=== PATIENT | female | born 1950 | race Caucasian/White ===

== ENCOUNTER 2021-01-15 06:26 | Day surgery (SDC) | payer MEDICARE ==
[~2021-01-15] VITALS: Ht 157.5 cm; Wt 48.5 kg
[~2021-01-15 06:26] MED LIST: AMITRIPTYLINE H50 MG PO; D3250 MCG PO; FISH OIL1000 MG PO; GABAPENTIN400 M2 PO; NEURONTIN600 MG PO; OXYCOD-APAP1 TA1 PO
[2021-01-15] MEDS ORDERED: LEVOTHYROXIN150 MCG PO (07:39)
[2021-01-15] MEDS ORDERED: BREO ELLIPTA 101 INH IN (07:39)
[2021-01-15] MEDS ORDERED: [UNRECOGNIZED DRUG - REMARK] PO (07:40)
[2021-01-15 09:04] VITALS: BP 103/67
== END 2021-01-15 09:30 | disposition home or self-care (01) ==
LOC: ORM 06:26
PROVIDERS: ATTEND Anesthesiology Pain Medicine
DX: M25.511 Pain in right shoulder (principal); M75.01 Adhesive capsulitis of right shoulder

== ENCOUNTER 2021-03-16 21:08 | Inpatient (IN) | payer MEDICARE ==
[~2021-03-16] VITALS: Ht 157.5 cm; Wt 48.0 kg
[~2021-03-16 21:08] MED LIST changes: +BREO ELLIPTA 101 INH IN; +LEVOTHYROXIN150 MCG PO; +[UNRECOGNIZED DRUG - REMARK] PO
--- NOTE | 2021-03-16 21:08 | NUR ---
PT TO ROOM VIA EMS STRETCHER, FOR BEDSIDE TRIAGE, PTS GRANDDAUGHTER AT BEDSIDE
--- NOTE | 2021-03-16 21:50 | NUR ---
PT VERBALLY RESPONSIVE FOLLOWS SIMPLE COMMANDS A FIB ALT CONTROLLED NONCONTROLLED.DENIES CP NO COUGH
[2021-03-16 21:55] LABS: HEMATOCRIT 25.7 % (37.0-47.0); HEMOGLOBIN 7.8 g/dl (12.0-16.0); IMMATURE GRANULOCYTES 0.2 % (0.0-5.0); MEAN CELL VOLUME 76.9 fL CALC (80.0-100.0); MEAN CORPUSCULAR HGB 23.4 pG CALC (26.0-32.0); MEAN CORPUSCULAR HGB CONC 30.4 g/dL CAL (32.0-36.0); NEUT# 8.69 thou/uL (2.00-7.15); RED BLOOD COUNT 3.34 mill/uL (4.20-5.60); RED CELL DISTRI WIDTH 16.8 % (11.5-15.5)
[2021-03-16] MEDS ORDERED: XARELTO20 MG PO (21:57)
[2021-03-16] MEDS ORDERED: DILTIAZEM120 M2 PO (21:57)
[2021-03-16] MEDS ORDERED: BREZTRI AEROSPH1 AER (22:00)
[2021-03-16 22:06] LABS: ALBUMIN 3.6 g/dL (3.2-5.0); ALKALINE PHOSPHATASE 107 u/l (38-126); ANION GAP 15 (6-22 (CALC)); BILIRUBIN, TOTAL 0.6 mg/dL (0.0-1.4); BUN 25 mg/dL (8-23); BUN/CREATININE RATIO 29 (12-20 (CALC)); CARBON DIOXIDE 23 mmol/l (22-30); CHLORIDE 100 mmol/l (95-108); CREATININE 0.8 mg/dL (0.5-1.0); GFR > 60 ML/MIN (>=60 (CALC)); GFR FOR AFR.AMER. > 60 ML/MIN (>=60 (CALC)); POTASSIUM 4.1 mmol/l (3.5-5.1); SGOT/AST 25 u/l (9-36); SODIUM 134 mmol/l (137-146); TOTAL PROTEIN 7.4 g/dL (6.3-8.2)
[2021-03-16 22:17] LABS: MYOGLOBIN 47 ng/mL (0 - 62)
--- NOTE | 2021-03-16 22:20 | NUR ---
W/P/D SKIN NO COUGH NO CONGESTION DENIES PAIN.
[2021-03-16 23:11] LABS: INTERNATIONAL NORMALIZED RATIO 1.2 RATIO (0.7-1.3); PROTHROMBIN TIME 12.5 SECONDS (9.0-12.5)
--- NOTE | 2021-03-16 23:41 | NUR ---
A FIB RATE VARIABLE 95-120 BPM NO CONGESTION NO COUGH NORMAL SPEAKING VOICE,
[2021-03-17] VITALS (14 sets, daily range): BP systolic 107–154; BP diastolic 67–88
--- NOTE | 2021-03-17 00:20 | NUR ---
PHONE REPORT TO NURSE JACOBS IN ICU PT TRANSPORTED TO ICU VIA STRETCHER ON BIPAP RN AND FLOOR CLERK IN STABLE CONDITION
--- NOTE | 2021-03-17 00:30 | NUR ---
RECEIVED PATIENT FROM ED VIA STRETCHER. AWAKE, ALERT AND ORIENTED. VSS. PATIENT ON BIPAP, SATURATION 91% TOLERATING WELL. ASSESSMENT COMPLETE. PATIENT ORIENTED TO ROOM AND INSTRUCTED ON USE OF BED CONTROLS AND CALL LIGHT. DENIES PAIN AT THIS TIME. INSTRUCTED TO CALL FOR ASSISTANCE.
--- NOTE | 2021-03-17 05:06 | NUR ---
RESTING QUIETLY. SATURATION 99% ON BIPAP.
--- NOTE | 2021-03-17 06:12 | NUR ---
BIPAP STANDBY. PLACED ON 5L NC
--- NOTE | 2021-03-17 07:00 | NUR ---
ASSUMED CARE OF PT FROM LAURENT JACKMAN. PT RESTING IN BED WITH EYES CLOSED, NO S/S OF DISTRESS NOTED.
--- NOTE | 2021-03-17 07:36 | NUR ---
UPDATED DAUGHTER KARSON BY PHONE
--- NOTE | 2021-03-17 08:20 | NUR ---
MD AT BEDSIDE ROUNDING
--- NOTE | 2021-03-17 09:04 | NUR ---
UPDATED DAUGHTER KARSON BY PHONE AFTER MD ROUNDS
--- NOTE | 2021-03-17 11:00 | NUR ---
PT ON 10L HFNC WITH SATS OF 91%. VSS.
--- NOTE | 2021-03-17 15:20 | NUR ---
PT AT BEDSIDE WORKING WITH PT
--- NOTE | 2021-03-17 19:40 | NUR ---
awakens easily. denies sob BUT IS with exertion. o2 cont. school bus monitor shows a fib hr 126. #20 lac saline lock. po fluids taken poor. has not voided this shift. has multi scabs about body. fall precautions cont. pt begins to instruct this comic writer how & when to give her meds. instructed pt this comic writer would give meds as ordered.
--- NOTE | 2021-03-17 20:00 | NUR ---
up to bsc. sob with exert. sao2 dropped to 74% with activity. once pt returned to bed. sao2 increased to 94%.
[2021-03-17 21:10] LABS: URINE BILIRUBIN - DIPSTICK NEGATIVE (NEGATIVE); URINE BLOOD DIPSTICK NEGATIVE (NEGATIVE); URINE COLOR YELLOW; URINE GLUCOSE - DIPSTICK 250 mg/dL (NEGATIVE); URINE KETONE NEGATIVE (NEGATIVE); URINE LEUK ESTERASE NEGATIVE (NEGATIVE); URINE PROTEIN - DIPSTICK TRACE mg/dL (NEG-TRACE); URINE SPECIFIC GRAVITY >=1.030; URINE UROBILINOGEN - DIPSTICK 0.2 E.U./dL (0.2)
[2021-03-17 21:11] LABS: URINE NITRITE - DIPSTICK NEGATIVE (Negative)
--- NOTE | 2021-03-17 22:00 | NUR ---
eyes closed. no distress. o2 cont.
[2021-03-18] VITALS (21 sets, daily range): BP systolic 84–150; BP diastolic 51–94
--- NOTE | 2021-03-18 00:01 | NUR ---
awakens easily. meds given. denies distress.
--- NOTE | 2021-03-18 02:00 | NUR ---
resting quietly. no distress. o2 cont.
--- NOTE | 2021-03-18 05:00 | NUR ---
lab here. blood drawn.
--- NOTE | 2021-03-18 05:30 | NUR ---
xray here. pcxr obtained.
[2021-03-18 06:25] LABS: HEMATOCRIT 25.3 % (37.0-47.0); HEMOGLOBIN 7.6 g/dl (12.0-16.0); IMMATURE GRANULOCYTES 0.3 % (0.0-5.0); MEAN CELL VOLUME 75.7 fL CALC (80.0-100.0); MEAN CORPUSCULAR HGB 22.8 pG CALC (26.0-32.0); NEUT# 6.78 thou/uL (2.00-7.15); RED BLOOD COUNT 3.34 mill/uL (4.20-5.60); RED CELL DISTRI WIDTH 16.8 % (11.5-15.5)
[2021-03-18 06:44] LABS: ANION GAP 12 (6-22 (CALC)); BUN 19 mg/dL (8-23); BUN/CREATININE RATIO 40 (12-20 (CALC)); CARBON DIOXIDE 25 mmol/l (22-30); CHLORIDE 104 mmol/l (95-108); CREATININE 0.5 mg/dL (0.5-1.0); GFR > 60 ML/MIN (>=60 (CALC)); GFR FOR AFR.AMER. > 60 ML/MIN (>=60 (CALC)); MAGNESIUM 1.8 mg/dL (1.6-2.3); POTASSIUM 4.1 mmol/l (3.5-5.1); SODIUM 137 mmol/l (137-146)
--- NOTE | 2021-03-18 07:00 | NUR ---
ASSUMED CARE OF PT FROM GILLIAN MITCHELL. PT RESTING IN BED ON 8L HI RAMESH NC. NO S/S OF DISTRESS NOTED
--- NOTE | 2021-03-18 08:05 | NUR ---
ROUNDOING AT BEDSIDE
--- NOTE | 2021-03-18 09:05 | NUR ---
PT AT BEDSIDE WITH PT
--- NOTE | 2021-03-18 12:15 | NUR ---
S- pt talking thoughout treatment and needed to be reminded to slow down and do proper breathing techniques. 0- Pt had just gotten out of bed with nursing. She performed sitting hip flexion, LAQ and ankle DF/PF 1 x 10 reps with frequent rest to maintain 02 sat at 90 or above. Pt HR in 130's, 02 sats 84 to 92% Spirometer performed with max at 750. Time spent with pt 25 min. 0- respiratory status limiting pt ability. [facility] 10 ECF. P- will follow per POC.
--- NOTE | 2021-03-18 14:09 | NUR ---
S- pt reported feeling better, has been up since this am. 0- nursing contacted prior to treatment. Pt performed 2 x 10 reps of LAQ.hip flexion, ankle DF with frequent rest to keep 02 sats in 90'. Pt stood x 1 with min assist for less than 30 sec and returned to sittin 02 sats to 84 with quick return to 90's, RR increased and pt required verbal cueing to slow breathing. Nursing aware. Time spent with pt 25 min. A- [facility] unchanged P- will follow per POC.
--- NOTE | 2021-03-18 14:20 | NUR ---
POST BREATHING TREATMENT AND FAMILY VISIT PT WAS NOTED TO BE IN TRIPOD POSTION WITH SATS IN THE LOW 60S, HI RAMESH NC IN PLACE AT 10L. RT NOTIFIED WHILE REMAINING WITH PT. RT PLACE NRB ON PT AND PT O2 SATS STABLIZED. PT A AND O X3, DENIES ANY OTHER NEEDS OR CONCERNS AT THIS TIME
--- NOTE | 2021-03-18 14:34 | NUR ---
PT WAS IN RESPIRATORY DISTRESS WITH SATS IN THE 60'S. PT PLACED ON NRB MASK TO RECOVER WITH SATS OF 95%. PT STATES SHE IS FEELING MUCH BETTER AND DOES NOT TO APPEAR TO BE IN RESPIRATORY DISTRESS ANYMORE. RN/RT TO CONTINUE MONITORING.
--- NOTE | 2021-03-18 17:15 | NUR ---
DAUGHTER VISITING AT BEDSIDE
--- NOTE | 2021-03-18 20:00 | NUR ---
awake. watching tv. sob with ANY activity. o2 cont per hfnc & nrb. training personnel supervisor shows a fib hr 121. #20 rac saline lock. po fluids taken well. voids per bsc. fall precautions cont.
--- NOTE | 2021-03-18 22:00 | NUR ---
eyes closed. no distress. o2 cont.
[2021-03-19] VITALS (22 sets, daily range): BP systolic 87–166; BP diastolic 54–101
--- NOTE | 2021-03-19 00:10 | NUR ---
awakens easily. medicated as ordered. no c/o.
--- NOTE | 2021-03-19 02:00 | NUR ---
resting quietly. resps even & unlabored. no apparent distress.
--- NOTE | 2021-03-19 05:53 | NUR ---
eyes closed. financial coach shows a fib 88.
--- NOTE | 2021-03-19 06:10 | NUR ---
lab here. blood drawn.
[2021-03-19 06:37] LABS: HEMATOCRIT 26.5 % (37.0-47.0); HEMOGLOBIN 7.6 g/dl (12.0-16.0); IMMATURE GRANULOCYTES 0.2 % (0.0-5.0); MEAN CELL VOLUME 77.9 fL CALC (80.0-100.0); MEAN CORPUSCULAR HGB 22.4 pG CALC (26.0-32.0); MEAN CORPUSCULAR HGB CONC 28.7 g/dL CAL (32.0-36.0); NEUT# 8.5 thou/uL (2.00-7.15); RED BLOOD COUNT 3.4 mill/uL (4.20-5.60)
--- NOTE | 2021-03-19 07:00 | NUR ---
ASSUMED CARE OF PT FROM GILLIAN MITCHELL. PT RESTING IN BED, DENIES NEEDS
[2021-03-19 07:03] LABS: ANION GAP 10 (6-22 (CALC)); BUN 32 mg/dL (8-23); BUN/CREATININE RATIO 52 (12-20 (CALC)); CARBON DIOXIDE 26 mmol/l (22-30); CHLORIDE 105 mmol/l (95-108); CREATININE 0.6 mg/dL (0.5-1.0); GFR > 60 ML/MIN (>=60 (CALC)); GFR FOR AFR.AMER. > 60 ML/MIN (>=60 (CALC)); POTASSIUM 4.2 mmol/l (3.5-5.1); SODIUM 137 mmol/l (137-146)
--- NOTE | 2021-03-19 08:00 | NUR ---
ROUNDING AT BEDSIDE
--- NOTE | 2021-03-19 09:14 | NUR ---
Contacted nursing this am, pt awaiting blood transfusion, will hold til afterwards.
--- NOTE | 2021-03-19 12:32 | NUR ---
NEB TX FOLLOWED BY CPT VIA PERCUSSOR. PT TOLERATED WELL.
--- NOTE | 2021-03-19 14:43 | NUR ---
PT VISITOR AT BEDSIDE
--- NOTE | 2021-03-19 16:27 | NUR ---
PT AT BEDSIDE WORKING WITH PT
--- NOTE | 2021-03-19 16:50 | NUR ---
S- pt reported her daughter and grand daugther has been coming to visit her. 0- Contacted nursing prior to treatment. Pt OOB in chair. Gentle heelcord stretching/hamstring stretching done with pt stating it felt good. She performed 10-20 reps of clamshell, LAQ and ankle DF/PF. Pt 02 sats in low 90's desat to 84 and returning to 90's with rest. Pt required verbal cues to pace/slow down movements. Continues be very talkative. Time spent 25 min A- Pt activity tolerance and mobility limited due to respirator status. P- will follow and treat as tolerated.
--- NOTE | 2021-03-19 17:30 | NUR ---
VISITOR AT BEDSIDE
--- NOTE | 2021-03-19 18:40 | NUR ---
LUCY RECEIVED FROM LAURENT PAZ
--- NOTE | 2021-03-19 21:00 | NUR ---
ASSESSMENT COMPLETE. PATIENT ASSISTED FROM CHAIR TO BED, SATURATION DROPS TO LOW 80'S. C/O RIGHT HIP PAIN AND REQUEST OXYCODONE. NO OTHER CONCERNS EXPRESS AT THIS TIME. CALL LIGHT WITHIN REACH.
[2021-03-20] VITALS (17 sets, daily range): BP systolic 81–158; BP diastolic 51–101
--- NOTE | 2021-03-20 00:17 | NUR ---
RESTING QUIETLY EYES CLOSED. SATURATION 98% ON VAPOTHERM.
[2021-03-20 05:48] LABS: HEMOGLOBIN 9.4 g/dl (12.0-16.0); IMMATURE GRANULOCYTES 0.1 % (0.0-5.0); MEAN CELL VOLUME 78.3 fL CALC (80.0-100.0); MEAN CORPUSCULAR HGB 23.7 pG CALC (26.0-32.0); MEAN CORPUSCULAR HGB CONC 30.3 g/dL CAL (32.0-36.0); NEUT# 8.87 thou/uL (2.00-7.15); RED BLOOD COUNT 3.96 mill/uL (4.20-5.60)
[2021-03-20 06:03] LABS: ANION GAP 11 (6-22 (CALC)); BUN 32 mg/dL (8-23); BUN/CREATININE RATIO 52 (12-20 (CALC)); CARBON DIOXIDE 26 mmol/l (22-30); CHLORIDE 103 mmol/l (95-108); CREATININE 0.6 mg/dL (0.5-1.0); GFR > 60 ML/MIN (>=60 (CALC)); GFR FOR AFR.AMER. > 60 ML/MIN (>=60 (CALC)); MAGNESIUM 1.9 mg/dL (1.6-2.3); POTASSIUM 4.6 mmol/l (3.5-5.1); SODIUM 136 mmol/l (137-146)
--- NOTE | 2021-03-20 06:41 | NUR ---
PATIENT RESTING IN BED WATCHING TV. SATURATION 95% ON VAPOTHERM TOLERATING WELL. NO DISTRESS NOTED AT THIS TIME. CALL LIGHT WITHIN REACH.
--- NOTE | 2021-03-20 08:10 | NUR ---
ROUNDING AT BEDSIDE
--- NOTE | 2021-03-20 09:05 | NUR ---
PT AT BEDSIDE WORKING WITH PATIENT
--- NOTE | 2021-03-20 10:38 | NUR ---
S- pt stated she needed to use commode when entering room, asking for laxative due to no bowel movements. Nursing aware, pt not eating much. 0- pt resting in bed. She moved to sitting with min assist using bed rail, rested on edge of bed and then transferring with min/mod assist of 1 to commode and then to chair. Calf stretch and hamstring stretch by therapist x 3 reps done. 02 sat low 90's and desat to 84 with transitional movements requiring time to recover after each movement. Pt continued to required verbal cues to stop talking and slow breathing, nursing aware. Time spent with pt 30 min. 0- mobility continues to be limited by weakness and respiratory status [facility] 10 ECF. P- Will continue to follow per POC
--- NOTE | 2021-03-20 10:45 | NUR ---
VISITOR AT BEDSIDE
--- NOTE | 2021-03-20 13:30 | NUR ---
Pt OOB in chair, resp therapist just left. Pt 02 sats mid 80. Treatment held at time time nursing aware.
--- NOTE | 2021-03-20 17:05 | NUR ---
VISITOR AT BEDSIDE
--- NOTE | 2021-03-20 19:00 | NUR ---
REPORT RECEIVED FROM Rodrick NICHOLAS RN, CARE OF PT ASSUMED AT THIS TIME.
--- NOTE | 2021-03-20 19:50 | NUR ---
PT ASSISTED TO BSC AND BACK TO BED BY Tika CASTANEDA CNA. 200ML CLEAR YELLOW OUTPUT IS REPORTED.
--- NOTE | 2021-03-20 20:41 | NUR ---
PT TOLERATES HS MEDICATION WHOLE WITH WATER WITHOUT DIFFICULTY. PRN OXYCODONE ADMINISTERED FOR RLE NUEROPATHY PER PT'S REQUEST. SEE E-JUN. Maira LOEPZ DIRECTOR OF PARKS AND RECREATION ADVISED VAPOTHERM HUMIDITY DUE TO BE REPLACED. PT DENIES FURTHER NEEDS AT THIS TIME. CALL DANIEL WITHIN REACH, AGREES TO CALL PRN.
--- NOTE | 2021-03-20 22:00 | NUR ---
PT LAYING IN BED SUPINE. EYES CLOSED. RESPIRATIONS REGULAR AND UNLABORED. APPEARS TO BE SLEEPING COMFORTABLY. SPO2 100%. CALL DANIEL REMAINS WITHIN REACH.
[2021-03-21] VITALS (22 sets, daily range): BP systolic 98–161; BP diastolic 65–97
--- NOTE | 2021-03-21 00:01 | NUR ---
Maira LOPEZ STAFF ATTORNEY IN ROOM ADMINISTERING [facility] [place]. SEE E-MAR. REPLACES VAPOTHER HUMIDITY AT THIS TIME.
--- NOTE | 2021-03-21 02:00 | NUR ---
PT LAYING IN BED SUPINE. EYES CLOSED. RESPIRATIONS REGULAR AND UNLABORED. APPEARS TO BE SLEEPING COMFORTABLY. SPO2 100%. CALL DANIEL REMAINS WITHIN REACH.
--- NOTE | 2021-03-21 04:00 | NUR ---
PT LAYING IN BED SUPINE. EYES CLOSED. RESPIRATIONS REGULAR AND UNLABORED. APPEARS TO BE SLEEPING COMFORTABLY. SPO2 100%. CALL DANIEL REMAINS WITHIN REACH.
--- NOTE | 2021-03-21 05:17 | NUR ---
Chuy HAMILTON PERL DEVELOPER IN ROOM COLLECTING AM LABS.
[2021-03-21 05:34] LABS: HEMATOCRIT 30.9 % (37.0-47.0); HEMOGLOBIN 9.1 g/dl (12.0-16.0); IMMATURE GRANULOCYTES 0.1 % (0.0-5.0); MEAN CELL VOLUME 79.8 fL CALC (80.0-100.0); MEAN CORPUSCULAR HGB 23.5 pG CALC (26.0-32.0); MEAN CORPUSCULAR HGB CONC 29.4 g/dL CAL (32.0-36.0); NEUT# 6.08 thou/uL (2.00-7.15); RED BLOOD COUNT 3.87 mill/uL (4.20-5.60); RED CELL DISTRI WIDTH 17.3 % (11.5-15.5)
[2021-03-21 06:06] LABS: ANION GAP 8 (6-22 (CALC)); BUN 30 mg/dL (8-23); BUN/CREATININE RATIO 57 (12-20 (CALC)); CARBON DIOXIDE 30 mmol/l (22-30); CHLORIDE 100 mmol/l (95-108); CREATININE 0.5 mg/dL (0.5-1.0); GFR > 60 ML/MIN (>=60 (CALC)); GFR FOR AFR.AMER. > 60 ML/MIN (>=60 (CALC)); MAGNESIUM 1.8 mg/dL (1.6-2.3); POTASSIUM 3.9 mmol/l (3.5-5.1); SODIUM 134 mmol/l (137-146)
--- NOTE | 2021-03-21 07:20 | NUR ---
pt resting in bed with eyes closed; no apparent distress noted; pt easily aroused; offers no complaints; assessment completed at this time; pt alert and oriented; denies pain; no n/v noted; resp even and unlabored; lungs clear, rhonchi left post base; skin color wnl; RT Varun at bedside; pt converted from 40L vapo with 100% FiO2 to 15L HFNC; o2 sat 93%, pt tolerated well; hr irreg; strong pulses; no edema noted; afib on monitor; abd soft with bs present; no bm noted per feature writer; no urine to inspect at this time; #20 to lw saline locked; no redness or edema noted at site; scabbed abrasions noted to ble; paln of care/am meds explained; call light within reach; will continue to monitor
--- NOTE | 2021-03-21 07:25 | NUR ---
PT WEANED TO HFNC. LESA WELL AT THIS TIME.
--- NOTE | 2021-03-21 08:05 | NUR ---
awake in bed; breakfast tray left at side of bed as per pt request; afib on monitor; o2 per nc at 15L HF; call light within reach; will continue to monitor
--- NOTE | 2021-03-21 08:30 | NUR ---
Dr Gil present at bedside to assess pt and discuss plan of care
--- NOTE | 2021-03-21 10:14 | NUR ---
awake in recliner; RT Mony present at bedside; o2 per nc at 15L HF; afib on monitor; iv intact; call light within reach; will continue to monitor
--- NOTE | 2021-03-21 10:24 | NUR ---
Attempted treatment this am. Pt on commode and transferred to BSC with nursing and therapist. Pt 02 sats in low 70 and RT and nursing working with pt. Will see pt later and treat if medically able to tolerated.
--- NOTE | 2021-03-21 12:10 | NUR ---
O2 sat low 80 to upper 70s; RT notified
--- NOTE | 2021-03-21 12:20 | NUR ---
awake in recliner; offers no complaints; no apparent distress noted; iv intact; afib on monitor; o2 per nc at 15L HF; pt deny needs; call light within reach; will continue to monitor
--- NOTE | 2021-03-21 12:39 | NUR ---
Patient O2 SAT BETWEEN 78-80% ON 12L HIGH FLOW CANNULA. Placed on a Non Rebreather Mask along with high flow cannula, O2 sats 98%.
--- NOTE | 2021-03-21 13:30 | NUR ---
PT C PT. NAD.VSS. ON NRB, C SPO2 AT 95%. SPEAKING IN FULL SENTENCES, SITTING IN RECLINER AT BEDSIDE C PT. FAMILY LAWYER TO MONITOR.
--- NOTE | 2021-03-21 14:02 | NUR ---
awake in bed; visit at bedside; no apparent distress noted; pt offers complaints; afib on monitor; NRB intact; o2 sat 91%; will continue to monitor
--- NOTE | 2021-03-21 14:16 | NUR ---
S- pt reported being tried, stated nursing wakes her for mid night meds and she did not sleep well after that. 0- pt in chair with legs elevated. NRB in place with 02 sats in low to mid 90's. A/AAROM to both LE x 10-15 reps with gentle calf stretching. BP 119/74, HR in mid 60's and nursing aware. 02 ssats low to mid 90s and desat mid 80's. She continues to require cues to breath properly. A- pt mobility continues to be limited by resp status. [facility] 10 ECF P- will follow.
--- NOTE | 2021-03-21 16:15 | NUR ---
awake in recliner; declined toileting; offers no complaints; afib on the monitor; iv intact; o2 per NRB; call light within reach; will continue to monitor
--- NOTE | 2021-03-21 17:32 | NUR ---
daughter present at bedside; pt converted to HFNC as per request for meal; o2 sat noted dropping to 77%; afib on monitor; NRB reapplied; pt request NC for bed d/t inability to sleep with the mask; RT notified; pt to be converted to vapotherm for meal; will continue to monitor
--- NOTE | 2021-03-21 18:00 | NUR ---
Dr Wang called in regards to pt complaints of nasal congestion/dryness; orders received and on chart
--- NOTE | 2021-03-21 18:03 | NUR ---
pt awake in recliner; resp labored; o2 per vapotherm/nrb combo; o2 sat 91%; iv intact and patent; abt infusing without complication; no redness or edema noted at site; afib on monitor; call light within reach
--- NOTE | 2021-03-21 19:00 | NUR ---
BEDSIDE REPORT RECEIVED FROM ABBE MANCILLA. CARE OF PT ASSUMED AT THIS TIME. PT DENIES NEEDS CURRENTLY. CALL DANIEL WITHIN REACH, AGREES TO CALL PRN.
--- NOTE | 2021-03-21 19:40 | NUR ---
PT ASSITED FROM BSC TO BED WITH MINIMAL ASSIT. PT EXPRESSES CONCERNS REGARDING HER ASSIGNED RETAIL AGENT BEING "TO SKINNY" TO HELP HER TRANSFER. VERBAL ASSURANCE PROVIDED THAT RETAIL AGENT IS CAPABLE OF HIS DUTIES. ASSISTED PT TO POSITION COMFORTABLY IN BED AND PUT BELONGINGS AND CALL DANIEL WITHIN REACH. AGREES TO CALL PRN. 300ML CLEAR YELLOW URINE EMPTIED FROM BSC.
[2021-03-22] VITALS (20 sets, daily range): BP systolic 105–157; BP diastolic 68–112
[2021-03-22 06:00] LABS: HEMATOCRIT 31.9 % (37.0-47.0); HEMOGLOBIN 9.3 g/dl (12.0-16.0); IMMATURE GRANULOCYTES 0.1 % (0.0-5.0); MEAN CELL VOLUME 80.8 fL CALC (80.0-100.0); MEAN CORPUSCULAR HGB 23.5 pG CALC (26.0-32.0); MEAN CORPUSCULAR HGB CONC 29.2 g/dL CAL (32.0-36.0); NEUT# 7.69 thou/uL (2.00-7.15); RED BLOOD COUNT 3.95 mill/uL (4.20-5.60); RED CELL DISTRI WIDTH 17.7 % (11.5-15.5)
[2021-03-22 06:21] LABS: ANION GAP 9 (6-22 (CALC)); BUN 31 mg/dL (8-23); BUN/CREATININE RATIO 54 (12-20 (CALC)); CARBON DIOXIDE 34 mmol/l (22-30); CHLORIDE 99 mmol/l (95-108); CREATININE 0.6 mg/dL (0.5-1.0); GFR > 60 ML/MIN (>=60 (CALC)); GFR FOR AFR.AMER. > 60 ML/MIN (>=60 (CALC)); POTASSIUM 4.2 mmol/l (3.5-5.1); SODIUM 137 mmol/l (137-146)
--- NOTE | 2021-03-22 07:30 | NUR ---
pt awake in bed; offers no complaints; no apparent distress noted; assessment completed at this time; pt alert and oriented; denies pain; no n/v noted; resp even and unlabored; lungs coarse with rhonchi in left bases, otherwise diminished bases; skin color wnl; o2 per vapotherm at 40L and 100% with NRB combo; o2 sat 98%; NRB removed; o2 sat noted to drop as low as 86% and recovered to 91% with vapo alone; NRB left at bedside for pt comfort; hr irreg; strong pulses; no edema noted; afib on monitor; abd soft with bs present; no bm noted per appeals writer; no urine to inspect at this time; #20 saline locked to lw; no redness or edema noted at site; scabbed abrasions noted to ble; repositioned for comfort; call light within reach; will continue to monitor
--- NOTE | 2021-03-22 08:00 | NUR ---
awake in bed eating breakfast; toast, cereal and fresh fruit cup provided as per pt request; afib on monitor; vapotherm intact; will continue to monitor
--- NOTE | 2021-03-22 08:45 | NUR ---
Dr Wang present at bedside to assess pt and discuss plan of care
--- NOTE | 2021-03-22 08:55 | NUR ---
assisted to bsc; exertional sob noted; o2 sat dropped to 68%; NRB applied with vapotherm; recovered nicely; pt declined to sit in recliner, assist back to bed 0900- pt asssited back to bsc; lg formed brown bm noted; pericare per pt; pt refused bath and linen change at this time; will continue to monitor
--- NOTE | 2021-03-22 09:40 | NUR ---
xray present at bedside
--- NOTE | 2021-03-22 10:05 | NUR ---
awake in bed; offers no complaints; denies needs; afib on monitor; vapotherm/ NRB combo intact; iv intact; call light within reach; will continue to monitor
--- NOTE | 2021-03-22 12:00 | NUR ---
pt assist to sit on side of the bed; declined recliner; meal set uo; o2 per vapotherm and NRB; NRB removed for meal, left at bedside; afib on monitor; iv intact; declined toileting; call light within reach; will continue to monitor
--- NOTE | 2021-03-22 12:38 | NUR ---
visitor present at bedside
--- NOTE | 2021-03-22 14:05 | NUR ---
awake in bed; offers no complaints; continue to refuse am care/bath; states "It's too cold"; afib on monitor; iv intact; o2 per vapotherm/nrb combo; call light within reach; will continue to monitor
--- NOTE | 2021-03-22 15:58 | NUR ---
pt awake in bed; offers no complaints; no apparent distress noted; afib on monitor; iv intact; o2 per vapotherm/nrb combo; call light within reach; will continue to monitor
--- NOTE | 2021-03-22 16:45 | NUR ---
awake; offers no complaints except "I can't hear"; pt denies need for toileting; writer producer request to change bed and pt agree; assist to bsc and linens changed; writer producer attempting to bathe patient; pt refusing stating "I will get cold"; partial bath offered and declined; back to bed; iv patent with abt infusing without complication; afib on monitor; will continue to monitor
--- NOTE | 2021-03-22 17:00 | NUR ---
daughter present at bedside with headphones; daughter states pt hearing has never been this bad; MD to assess in am
--- NOTE | 2021-03-22 18:14 | NUR ---
awake in bed eating dinner; no apparent distress noted; pt offers no complaints; iv intact and patent; afib on monitor; o2 per combo continued; call light within reach
--- NOTE | 2021-03-22 19:00 | NUR ---
BEDSIDE REPORT RECEIVED FROM ABBE MANCILLA. CARE OF PT ASSUMED AT THIS TIME. PT DENIES NEEDS CURRENTLY. CALL DANIEL WITHIN REACH, AGREES TO CALL PRN.
[2021-03-23] VITALS (13 sets, daily range): BP systolic 114–149; BP diastolic 72–106
--- NOTE | 2021-03-23 | NUR ---
PT LAYING IN BED SUPINE. EYES CLOSED. RESPIRATIONS REGULAR AND UNLABORED. APPEARS TO BE SLEEPING COMFORTABLY. SPO2 100%. CALL DANIEL REMAINS WITHIN REACH.
--- NOTE | 2021-03-23 04:43 | NUR ---
Chuy HAMILTON PIERCE AND SHAVE PRESS OPERATOR IN ROOM COLLECTING LABS.
[2021-03-23 04:56] LABS: HEMATOCRIT 33.1 % (37.0-47.0); HEMOGLOBIN 9.6 g/dl (12.0-16.0); IMMATURE GRANULOCYTES 0.2 % (0.0-5.0); MEAN CELL VOLUME 80.3 fL CALC (80.0-100.0); MEAN CORPUSCULAR HGB 23.3 pG CALC (26.0-32.0); NEUT# 8.71 thou/uL (2.00-7.15); RED BLOOD COUNT 4.12 mill/uL (4.20-5.60); RED CELL DISTRI WIDTH 17.9 % (11.5-15.5)
[2021-03-23 05:12] LABS: ANION GAP 9 (6-22 (CALC)); BUN 29 mg/dL (8-23); BUN/CREATININE RATIO 63 (12-20 (CALC)); CARBON DIOXIDE 32 mmol/l (22-30); CHLORIDE 99 mmol/l (95-108); CREATININE 0.5 mg/dL (0.5-1.0); GFR > 60 ML/MIN (>=60 (CALC)); GFR FOR AFR.AMER. > 60 ML/MIN (>=60 (CALC)); POTASSIUM 4.2 mmol/l (3.5-5.1); SODIUM 136 mmol/l (137-146)
--- NOTE | 2021-03-23 06:55 | NUR ---
REPORT FROM LAW MANCILLA. ASSUMED PT CARE.
--- NOTE | 2021-03-23 07:45 | NUR ---
AT BEDSIDE. PT UP FROM BSC INTO CHAIR. SATS IN LOW 80S AT THIS TIME. PT CONTINUES WITH VAPOTHERM 40L/M @ 100 FIO2 WITH NONREBREATHER OVER AT 15L/M. RESPIRATIONS LABORED. SATS RECOVERING QUICKLY. PT SET UP FOR BREAKFAST. CALL LIGHT WITHIN REACH. WILL CONTINUE TO MONITOR.
--- NOTE | 2021-03-23 09:24 | NUR ---
PT UP TO BSC.
--- NOTE | 2021-03-23 10:31 | NUR ---
PT SITTING UP IN CHAIR AT BEDSIDE. NO APPARENT DISTRESS NOTED. O2 SAT 95% WITH VAPOTHERM 40L/M @ 100% FIO2. CALL LIGHT WITHIN REACH. WILL CONTINUE TO MONITOR.
--- NOTE | 2021-03-23 11:45 | NUR ---
DAUGHTER UPDATED AT THIS TIME.
--- NOTE | 2021-03-23 12:39 | NUR ---
DAUGHTER AT BEDSIDE VISITING.
--- NOTE | 2021-03-23 13:27 | NUR ---
CPT DONE POST RESPIRATORY TREATMENT. VSS, PT TOLERATED WELL.
--- NOTE | 2021-03-23 13:30 | NUR ---
RT AT BEDSIDE.
--- NOTE | 2021-03-23 15:58 | NUR ---
PT RESTING IN CHAIR AT BEDSIDE WATCHING TV. NO APPARENT DISTRESS NOTED. O2 SAT 98% ON VAPOTHERM 40L/M @ 100%FIO2. VSS. CALL LIGHT WITHIN REACH. WILL CONTINUE TO MONITOR.
--- NOTE | 2021-03-23 17:23 | NUR ---
PT SITTING UP IN CHAIR WATCHING TV. NO APPARENT DISTRESS NOTED. VSS. VAPOTHERM SETTINGS UNCHANGED. CALL LIGHT WITHIN REACH. WILL CONTINUE TO MONITOR.
--- NOTE | 2021-03-23 18:45 | NUR ---
BEDSIDE REPORT RECEIVED FROM Tika BENITEZ LPN, CARE OF PT ASSUMED AT THIS TIME.
--- NOTE | 2021-03-23 20:00 | NUR ---
PT ASSITED BACK TO BED FROM RECLINER.
[2021-03-24] VITALS (12 sets, daily range): BP systolic 99–156; BP diastolic 63–111
--- NOTE | 2021-03-24 07:00 | NUR ---
ASSUMED CARE OF PT. PT RESTING IN BED, VSS, NO S/S OF DISTRESS NOTED, DENIES ANY NEEDS AT THIS TIME
--- NOTE | 2021-03-24 07:20 | NUR ---
REPORT RECEIVED FROM MARCELLUS MANCILLA. CARE ASSUMED.
--- NOTE | 2021-03-24 07:27 | NUR ---
CPT PERFORMED POST TREATMENT. PT SATS BEGAN TO DROP TO 68%, CPT STOPPED AND RT ASSISTED PT IN RECOVERY.
--- NOTE | 2021-03-24 07:30 | NUR ---
PATIENT RESTING IN BED AT THIS TIME ON VAPOTHERM AND NRB. PATIENT IS ALERT AND ORIENTED X3. SHIFT ASSESSMENT COMPLETED AT THIS TIME. IV PATENT X1. PATIENT ASSISTED UP TO BSC. PATIENT WITH TACHYPNEA AND DYSPNEA WITH MINIMAL EXERTION. CALL LIGHT IN REACH. WILL CONTINUE TO MONITOR.
--- NOTE | 2021-03-24 07:42 | NUR ---
PATIENT ASSISTED BACK TO BED AT THIS TIME.
--- NOTE | 2021-03-24 09:23 | NUR ---
DR LEBLANC INTO SEE PATIENT. PLAN OF CARE DISCUSSED. CONNECTED DR LEBLANC TO DAUGHTER KARSON ON PHONE TO DISCUSS PLAN OF CARE. PATIENT MEDICATED WITH METOPROLOL IV FOR ELEVATED HEART RATE. LAB THEN AT BEDSIDE FOR AM LABS
[2021-03-24 09:32] LABS: HEMATOCRIT 31.6 % (37.0-47.0); HEMOGLOBIN 9.4 g/dl (12.0-16.0); MEAN CORPUSCULAR HGB 23.2 pG CALC (26.0-32.0); MEAN CORPUSCULAR HGB CONC 29.7 g/dL CAL (32.0-36.0); RED BLOOD COUNT 4.05 mill/uL (4.20-5.60)
[2021-03-24 10:02] LABS: ANION GAP 10 (6-22 (CALC)); BUN 29 mg/dL (8-23); BUN/CREATININE RATIO 66 (12-20 (CALC)); CARBON DIOXIDE 32 mmol/l (22-30); CHLORIDE 98 mmol/l (95-108); CREATININE 0.4 mg/dL (0.5-1.0); GFR > 60 ML/MIN (>=60 (CALC)); GFR FOR AFR.AMER. > 60 ML/MIN (>=60 (CALC)); POTASSIUM 4.2 mmol/l (3.5-5.1); SODIUM 136 mmol/l (137-146)
--- NOTE | 2021-03-24 10:25 | NUR ---
ANTHONY FROM [facility] CALLED FOR UPDATE. ANTHONY WILL CALL DAUGHTER AND LET US KNOW.
--- NOTE | 2021-03-24 11:45 | NUR ---
PATEINT SET UP FOR NOON MEAL AT THIS TIME. PATIENT REMAINS ON VAPOTHERM AT 40L 100%. NRB ON STANDBY AT BEDSIDE. VSS ON MONITOR. CALL LIGHT IN REACH. WILL CONTINUE TO MONITOR.
--- NOTE | 2021-03-24 12:55 | NUR ---
CPT DONE POST BRONCHODILATOR TREATMENT.
--- NOTE | 2021-03-24 14:00 | NUR ---
PATIENT RESTING IN BED WITH EYES CLOSED. VSS ON MONITOR. CALL LIGHT IN REACH. WILL CONTINUIE TO MONITOR.
--- NOTE | 2021-03-24 14:36 | NUR ---
S- "how is my heart rate?" 0- Pt not seen this am. Pt resting in bed this pm, stated she did not want to get OOB at this time. Pt perfomred act shoulder flexion x 10 reps and gentle manual resist elbow flexion and extension 2x10 reps. LE AROM for heelslides, hip abd/add, hip IR/ER and ankle DF/PF x 10 reps each.BP 116/77, HR 85 to 95, )2 sat 91, desat to 88 with recovery back to 91 with rest. Time spent with pt 30 min. A- [facility] 10 ECF. Respiratory status limiting pt ability. P- Will follow per POC.
--- NOTE | 2021-03-24 15:50 | NUR ---
PATIENT RESTING IN BED AT THIS TIME WATCHING TV. VSS ON MONITOR. WILL CONTINUE TO MONITOR.
--- NOTE | 2021-03-24 17:00 | NUR ---
FAMILY IN ROOM DISCUSSING HOSPICE WITH PATIENT. PATIENT STATES "I DONT WANT IT TO BE PAINFUL"
--- NOTE | 2021-03-24 18:18 | NUR ---
PATIENT REFUSED EVENING MEAL. VSS ON MONITOR. WILL CONTINUE TO MONITOR.
--- NOTE | 2021-03-24 18:45 | NUR ---
SBAR RECEIVED FROM LAURENT BIGGS.
--- NOTE | 2021-03-24 19:55 | NUR ---
ASSESSMENT COMPLETE. PATIENT RESTING IN BED WATCHING TV. SATURATION 92% ON VAPOTHERM 40L/100%; NON-REBREATHER NOT IN USE AT THIS TIME. PATIENT STATES SHE DOES NOT NEED IT RIGHT NOW, AND TO LEAVE IT WITHIN HER REACH. NO C/O PAIN AT THIS TIME. CALL LIGHT WITHIN REACH, INSTRUCTED TO CALL FOR ASSISTANCE.
--- NOTE | 2021-03-24 23:34 | NUR ---
RESTING QUIETLY EYES CLOSED. SATURATION 91% ON VAPO/NRB COMBO. NO DISTRESS NOTED, CALL LIGHT WITHIN REACH.
[2021-03-25] VITALS (17 sets, daily range): BP systolic 106–145; BP diastolic 72–96
--- NOTE | 2021-03-25 01:38 | NUR ---
RESTING QUIETLY EYES CLOSED. SATURATION 89% ON VAPOTHERM, NON-REBREATHER IS NOT IN USE AT THIS TIME. NO DISTRESS NOTED. BED IN LOW POSITION, LOCKED. CALL LIGHT WITHIN REACH.
--- NOTE | 2021-03-25 03:12 | NUR ---
ASSISTED PATIENT TO BSC, TOLERATED FAIR. 300ML ORANGE URINE NOTED. TRANSFERRED BACK TO BED. C/O RIGHT HIP/LEG PAIN 7 ON SCALE 0-10, OXYCODONE ADMINSTERED ORDERED. PATIENT PULLED UP IN BED, CALL LIGHT WITHIN REACH.
[2021-03-25 05:21] LABS: HEMATOCRIT 29.4 % (37.0-47.0); HEMOGLOBIN 8.4 g/dl (12.0-16.0); MEAN CELL VOLUME 79.5 fL CALC (80.0-100.0); MEAN CORPUSCULAR HGB 22.7 pG CALC (26.0-32.0); MEAN CORPUSCULAR HGB CONC 28.6 g/dL CAL (32.0-36.0); RED BLOOD COUNT 3.7 mill/uL (4.20-5.60); RED CELL DISTRI WIDTH 17.7 % (11.5-15.5)
[2021-03-25 05:35] LABS: ANION GAP 7 (6-22 (CALC)); BUN 30 mg/dL (8-23); BUN/CREATININE RATIO 74 (12-20 (CALC)); CARBON DIOXIDE 36 mmol/l (22-30); CHLORIDE 96 mmol/l (95-108); CREATININE 0.4 mg/dL (0.5-1.0); GFR > 60 ML/MIN (>=60 (CALC)); GFR FOR AFR.AMER. > 60 ML/MIN (>=60 (CALC)); MAGNESIUM 1.9 mg/dL (1.6-2.3); POTASSIUM 4.1 mmol/l (3.5-5.1); SODIUM 135 mmol/l (137-146)
--- NOTE | 2021-03-25 07:53 | NUR ---
HOSPICE REPRESENT ANTHONY ON THE PHONE AT THIS TIME. STATES WILL ATTEMPT TO HAVE A HOSPICE NURSE VISIT WITH FAMILY TODAY, CASE MANAGEMENT NOTIFIED OF UPDATE. WILL CONTINUE TO MONITOR.
--- NOTE | 2021-03-25 07:53 | NUR ---
SITTING UP HAVING BREAKFAST AT THIS TIME.
--- NOTE | 2021-03-25 08:43 | NUR ---
DAUGHTER CALLED TO MAKE MD TALKS WITH PT ABOUT HOSPICE OPTIONS AGAIN. SHE BELIEVES PT MISUNDERSTOOD PAST CONVERSATION WITH MD.
--- NOTE | 2021-03-25 09:14 | NUR ---
DR LEBLANC IN ROUNDING ON PT. AND EXPLAINING HOSPICE OPTIONS. PT CONTINUES WITH ISSUES WITH HEARING.
--- NOTE | 2021-03-25 10:37 | NUR ---
RESTING IN BED. CHEST RISING AND FALLING.
--- NOTE | 2021-03-25 13:03 | NUR ---
granddaughter in to visit pt resting. granddaughter left and ask for brought in food be refrigerated.
--- NOTE | 2021-03-25 13:20 | NUR ---
RT IN WITH PT AT THIS TIME.
--- NOTE | 2021-03-25 15:13 | NUR ---
SLIGHT RESP DISTRESS NOTED. O2 SAT DROPPED TO 80-82% PRN MORPHINE AND ATIVAN GIVEN.
--- NOTE | 2021-03-25 17:00 | NUR ---
DAUGHTER KARSON IN TO SEE PT.
--- NOTE | 2021-03-25 18:24 | NUR ---
RESTING COMFORTABLE IN BED. NO S/S OF DISTRESS NOTED.
--- NOTE | 2021-03-25 18:40 | NUR ---
SBAR RECEIVED FROM LAURENT SINGH. PATIENT RESTING COMFORTABLY IN BED EYES CLOSED. SATURATION 90% ON VAPO/NRB COMBO.
--- NOTE | 2021-03-25 19:21 | NUR ---
ASSESSMENT COMPLETE. HR 128, BP 144/96; PRN METOPROLOL GIVEN FOR HR >120. WILL CONTINUE TO MONITOR.
--- NOTE | 2021-03-25 21:07 | NUR ---
SATURATION IN THE 70'S, HR 129. PATIENT REPOSITIONED IN BED. ONLY CARDIZEM AND SOLUMEDROL OF EVENING MEDS GIVEN. PATIENT HAVING AIR HUNGER, CARDIZEM CRUSHED AND GIVEN WITH PUDDING FOR HR OF 129. PRN ATIVAN AND MORPHINE GIVEN AT THIS TIME. WILL CONTINUE TO MONITOR.
--- NOTE | 2021-03-25 21:22 | NUR ---
SATURATION 91%. NO DISTRESS OR ANXIETY NOTED. PATIENT RESTING COMFORTABLY.
[2021-03-26] VITALS (18 sets, daily range): BP systolic 122–161; BP diastolic 87–114
--- NOTE | 2021-03-26 00:38 | NUR ---
RESTING QUIETLY. VAPOTHERM AND NON-REBREATHER IN USE, SATURATION 94%; PATIENT IN SEMI-FOWLERS POSITION. BED IN LOW POSITION LOCKED. CALL LIGHT WITHIN REACH.
--- NOTE | 2021-03-26 03:05 | NUR ---
PATIENT WOKE UP, SATURATION IMMEDIATELY DROPPED TO 79% WITH VAPO/NRB COMBO, HR INCREASED TO 31 BMP. PRN ATIVAN AND MORPHINE GIVEN WELL PRN METOPROLOL IV. PATIENT TOLERATED WELL, WITHIN MINUTES IMPROVEMENT NOTED. SATURATION 91% AND HR 110.
[2021-03-26 05:25] LABS: HEMATOCRIT 28.7 % (37.0-47.0); HEMOGLOBIN 8.4 g/dl (12.0-16.0); MEAN CELL VOLUME 76.9 fL CALC (80.0-100.0); MEAN CORPUSCULAR HGB 22.5 pG CALC (26.0-32.0); MEAN CORPUSCULAR HGB CONC 29.3 g/dL CAL (32.0-36.0); RED BLOOD COUNT 3.73 mill/uL (4.20-5.60); RED CELL DISTRI WIDTH 18.2 % (11.5-15.5)
[2021-03-26 05:46] LABS: ANION GAP 8 (6-22 (CALC)); BUN 31 mg/dL (8-23); BUN/CREATININE RATIO 60 (12-20 (CALC)); CARBON DIOXIDE 36 mmol/l (22-30); CHLORIDE 96 mmol/l (95-108); CREATININE 0.5 mg/dL (0.5-1.0); GFR > 60 ML/MIN (>=60 (CALC)); GFR FOR AFR.AMER. > 60 ML/MIN (>=60 (CALC)); POTASSIUM 4.1 mmol/l (3.5-5.1); SODIUM 136 mmol/l (137-146)
--- NOTE | 2021-03-26 06:24 | NUR ---
INTELLIGENCE SUPPORT OFFICER ORAL MEDS HELD. PATIENT DROWSY, DIFFICULT TO AROUSE. AT RISK FOR ASPIRATION.
--- NOTE | 2021-03-26 06:58 | NUR ---
RESTING IN BED. RT AT BEDSIDE.
--- NOTE | 2021-03-26 07:12 | NUR ---
PT. UNABLE TO TOLERATE CPT AT THIS TIME.
--- NOTE | 2021-03-26 07:59 | NUR ---
ANTHONY FROM [facility] CALLED TO CHECK ON PT.
--- NOTE | 2021-03-26 09:22 | NUR ---
DR LEBLANC IN ROUNDING ON PT.
--- NOTE | 2021-03-26 10:03 | NUR ---
Pt not seen yesterday or today due to medical status, will d/c at this time from PT.
--- NOTE | 2021-03-26 10:43 | NUR ---
2 VISITORS AT BEDSIDE.
--- NOTE | 2021-03-26 12:00 | NUR ---
ATTEMPTED BED BATH PT REFUESED.
--- NOTE | 2021-03-26 14:00 | NUR ---
CONTINUE WITH TURNING AND REPOSITIONING TO MAINTAIN SKIN INTEGRITY.
--- NOTE | 2021-03-26 15:00 | NUR ---
PRN MORPHINE AND ATIVAN GIVEN. LETHARGIC AND PULLING AT NRB AND VAPOTHERM NC OFF FACE.
--- NOTE | 2021-03-26 17:18 | NUR ---
Patient resting in room. No new issues. Patient reports no pain just that he feels not himself. Safety precautions in place. Patient demenostrates and verbalizes understanding on how to use the call light. Will continue to monitor.
--- NOTE | 2021-03-26 17:24 | NUR ---
DAUGHTER AT BEDSIDE VISITING.
--- NOTE | 2021-03-26 20:00 | NUR ---
poorly responsive. no apparent resp distress. o2 cont per vapotherm & nrb. hall monitor shows a fib 136 occas paced beats. #20 lt wrist saline lock. no po intake as of yet. has angelito voided. fall precautions cont.
--- NOTE | 2021-03-26 22:50 | NUR ---
pulse ox shows 35% with good wave form. entered pts room. vapotherm cannula & nrb mask off. color VERY pale. skin cool. o2 replaced. ativan 1mg ivp given. o2 sat gradually increased to 80%.
[2021-03-27] VITALS (12 sets, daily range): BP systolic 141–175; BP diastolic 94–119
--- NOTE | 2021-03-27 00:01 | NUR ---
eyes closed. pt unresponsive. o2 cont.
--- NOTE | 2021-03-27 01:00 | NUR ---
pulse ox 70%. nrb off-replaced. ativan 1mg ivp given.
--- NOTE | 2021-03-27 04:00 | NUR ---
eyes closed. no distress. monitor tech shows a fib 142.
--- NOTE | 2021-03-27 06:04 | NUR ---
pt remains unresponsive. o2 cont.
--- NOTE | 2021-03-27 07:18 | NUR ---
RESTING IN BED COMFORTABLY. NO S/S OF DISTRESS NOTED.
--- NOTE | 2021-03-27 09:33 | NUR ---
DR LEBLANC IN ROUNDING ON PT. AWAITING NEW ORDERS.
--- NOTE | 2021-03-27 09:45 | NUR ---
DR LEBLANC SPEAKING WITH DAUGHTER KARSON.
--- NOTE | 2021-03-27 10:20 | NUR ---
KARSON YANES CALLED WITH INFO FOR PT REMAINS WHEN SHE EXPIRES. [facility] [phone].
--- NOTE | 2021-03-27 11:29 | NUR ---
3 grandchildren at bedside visiting pt.
--- NOTE | 2021-03-27 12:26 | NUR ---
daughter and grandchildren at bedside. dr patel in speaking with pt family.
--- NOTE | 2021-03-27 12:49 | NUR ---
DAUGHTER KARSON STATES, "JUST WANT HER TO GO PEACEFULLY." TERMINAL O2 REMOVAL DONE AT 1232. PT EXPIRES PEACEFULLY AT 1239. 100% PACED. NO LUNG SOUNDS PER AUSCULTATION NO HEART TONES THRU PALPATION/AUSCULTATION. VERIFIED WITH 2ND RN.
--- NOTE | 2021-03-27 13:00 | NUR ---
[facility] MADE AWARE OF AND EN ROUTE TO COLLECT REMAINS.
--- NOTE | 2021-03-27 13:07 | NUR ---
SPOKE WITH MANUEL AT [facility] AND AWAITING CALL [facility]. REFERRAL NUMBER [id number]
--- NOTE | 2021-03-27 13:44 | NUR ---
RECIEVED CALL FROM ALBERTO AT [facility] PT DOES NOT MEET CRITERIA FOR DONATION.
--- NOTE | 2021-03-27 15:15 | NUR ---
STAFF IN TO COLLECT . SAFELY TAKEN OFF UNIT IN [facility].
== END 2021-03-27 12:39 | disposition expired | DRG 190 ==
LOC: ED 21:08 → ED-I 22:50 → ED 23:13 → ICU 23:14
PROVIDERS: Emergency Medicine; Hospitalist; Internal Medicine; ADMIT Internal Medicine; ATTEND Internal Medicine
PROC: 5A09357 Assistance with Respiratory Ventilation, Less than 24 Consecutive Hours, Continuous Positive Airway Pressure (ICD-10-PCS; principal; 2021-03-16)
PROC: 30233N1 Transfusion of Nonautologous Red Blood Cells into Peripheral Vein, Percutaneous Approach (ICD-10-PCS; 2021-03-19)
DX: J44.1 Chronic obstructive pulmonary disease with (acute) exacerbation (principal); J18.9 Pneumonia, unspecified organism; J96.21 Acute and chronic respiratory failure with hypoxia; J44.0 Chronic obstructive pulmonary disease with (acute) lower respiratory infection; D64.9 Anemia, unspecified; I48.91 Unspecified atrial fibrillation; F32.A Depression, unspecified; Z51.5 Encounter for palliative care; Z66 Do not resuscitate; Z79.01 Long term (current) use of anticoagulants; Z99.81 Dependence on supplemental oxygen; Z20.822 Contact with and (suspected) exposure to COVID-19
CPT/HCPCS: J2060; P9016